=== PATIENT | male | born 1980 | race Caucasian/White ===

== ENCOUNTER 2019-03-23 04:07 | Emergency (ER) | payer MEDICAID, OTHER ==
[~2019-03-23] VITALS: Ht 172.7 cm; Wt 83.9 kg
--- NOTE | 2019-03-23 04:10 | NUR ---
SEEN AND EXAMINED BY
--- NOTE | 2019-03-23 04:11 | NUR ---
PT [id number] FROM [place] C/O HEARING VOICES, OUT OF MEDS. PATIENT DENIES SI/HI, NO PHYSICAL COMPLAINTS AT THIS TIME. PT IS AAOX3, NOT IN RESPIRATORY DISTRESS V/S STABLE, KEPT RESTED AND COMFORTABLE, WILL CONTINUE TO MONITOR.
--- NOTE | 2019-03-23 04:17 | NUR ---
ER PHLEB AT BEDSIDE FOR BLOOD DRAW.
--- NOTE | 2019-03-23 04:20 | NUR ---
URINAL GIVEN BUT UNABLE TO PROVIDE URINE SPECIMEN.
[2019-03-23 04:25] LABS: BASOPHILS % (AUTO) 0.6 % (0.0-2.0); EOSINOPHILS % (AUTO) 3.7 % (0.0-6.0); HEMATOCRIT 40 % (39-51); HEMOGLOBIN 13.8 g/dL (13.5-17.5); LYMPHOCYTES # (AUTO) 1.4 /CMM (0.8-4.8); LYMPHOCYTES % (AUTO) 19.9 % (20.0-44.0); MEAN CORPUSCULAR HGB CONC 34 g/dl (31.0-36.0); MEAN CORPUSCULAR VOLUME 88 fL (80-96); MONOCYTES # (AUTO) 0.6 /CMM (0.1-1.30); MONOCYTES % (AUTO) 8.4 % (2.0-12.0); NEUTROPHILS # (AUTO) 4.8 /CMM (1.8-8.9); NEUTROPHILS % (AUTO) 67.4 % (43.0-81.0); PLATELET COUNT (AUTO) 294 /CMM (150-450); WHITE BLOOD COUNT (AUTO) 7.1 K/uL (4.3-11.0)
[2019-03-23 04:34] LABS: CARBON DIOXIDE 31 mmol/L (21-32); CHLORIDE 100 mmol/L (98-107); GLUCOSE 114 mg/dL (74-106); POTASSIUM 3.7 mmol/L (3.5-5.1); SODIUM SERUM 137 mmol/L (136-145); UREA NITROGEN, BLOOD 14 mg/dL (7-18)
[2019-03-23 04:48] LABS: ACETAMINOPHEN 0 ug/ml (10-30); ALANINE AMINOTRANSFERASE 27 U/L (12-78); ALCOHOL, BLOOD < 3 mg/dL (0-0); ALKALINE PHOSPHATASE 114 U/L (46-116); ASPARTATE AMINOTRANSFERASE 16 U/L (15-37); BILIRUBIN,DIRECT 0.1 mg/dL (0.0-0.2); BILIRUBIN,TOTAL 0.5 mg/dL (0.2-1.0); TOTAL PROTEIN, SERUM 7.4 g/dL (6.4-8.2)
--- NOTE | 2019-03-23 06:28 | NUR ---
PT STILL UNABLE TO PROVIDE URINE SAMPLE AT THIS TIME. PROVIDED PT WITH WATER. AWARE
--- NOTE | 2019-03-23 06:49 | NUR ---
URINE SPECIMEN COLLECTED AND SENT TO LAB.
[2019-03-23 07:17] LABS: APPEARANCE,URINE Clear (CLEAR); BILIRUBIN,URINE Negative (NEGATIVE); BLOOD, URINE Negative Ery/uL (NEGATIVE); COLOR,URINE Yellow (YELLOW); KETONES,URINE Negative (NEGATIVE); LEUKOCYTE ESTERASE ,URINE Negative (NEGATIVE); NITRITE, URINE Negative (NEGATIVE); PROTEIN,URINE Negative (NEGATIVE); UGLUCOSE Negative (NEGATIVE); UROBILINOGEN,URINE 0.2 EU/dL (0.2)
--- NOTE | 2019-03-23 08:59 | NUR ---
YUMIKO PEREZ LCSW, IN THE BUILDING FOR EVAL.
--- NOTE | 2019-03-23 10:34 | NUR ---
PATIENT A/OX3, BREATHING EVEN AND UNLABORED, NO SOB NOTED, SEEN BY ART AND EVALUATED. PATIENT DENIES SI/HI. RESOURCES PROVIDED. SIGNED HOMELESS WAIVER FORM. PATIENT OFFERED FOOD BUT REFUSED. TAP CARD PROVIDED. NO IV INSERTED. PATIENT DISCHARGED IN STABLE CONDITION, VERBALIZED DISCHARGE INSTRUCTIONS. REFUSED DISCHARGE PAPERWORKS.
[2019-03-23 10:41] VITALS: BP 110/57
== END 2019-03-23 10:42 | disposition home or self-care (01) ==
LOC: ER 04:09
DX: F20.9 Schizophrenia, unspecified (principal); F10.10 Alcohol abuse, uncomplicated; F17.200 Nicotine dependence, unspecified, uncomplicated; F12.10 Cannabis abuse, uncomplicated; Y90.0 Blood alcohol level of less than 20 mg/100 ml; Z88.0 Allergy status to penicillin; Z88.2 Allergy status to sulfonamides; Z88.1 Allergy status to other antibiotic agents
CPT/HCPCS: 36415; 80048-TC; 80076-TC; 80305; 81000-TC; 85025-TC; G0480

== ENCOUNTER 2019-03-23 18:12 | Emergency (ER) | payer MEDICAID | END 2019-03-23 19:11 | disposition left against medical advice (07) | LOC: ER 18:20 | DX: Z53.21 Procedure and treatment not carried out due to patient leaving prior to being seen by health care provider (principal) ==

== ENCOUNTER 2019-03-25 03:33 | Emergency (ER) | payer MEDICAID ==
[~2019-03-25] VITALS: Ht 172.7 cm; Wt 64.9 kg
[2019-03-25 03:51] VITALS: BP 122/72
--- NOTE | 2019-03-25 05:05 | NUR ---
Patient discharged to home in stable condition. Written and verbal after care instructions given. Patient verbalizes understanding of instruction. Pt ambulatory with a steady gait
== END 2019-03-25 05:08 | disposition home or self-care (01) ==
LOC: ER 03:38
DX: Z00.00 Encounter for general adult medical examination without abnormal findings (principal); F20.9 Schizophrenia, unspecified; F17.200 Nicotine dependence, unspecified, uncomplicated; Z88.0 Allergy status to penicillin; Z88.2 Allergy status to sulfonamides; Z88.1 Allergy status to other antibiotic agents; Z59.0 Homelessness
CPT/HCPCS: Z7502